=== PATIENT | male | born 1995 | race Caucasian/White ===

== ENCOUNTER 2023-09-29 16:30 | Emergency (ER) | payer BC, SELFPAY ==
[2023-09-29 16:36] VITALS: BP 121/82
[2023-09-29 16:54] LABS: % Basophils 0.3 % (0-2); % Eosinophils 0.2 % (0-6); % Immature Granulocytes 0.3 % (0-0.5); % Lymphocytes 27.4 % (20.5-51.1); % Monocytes 5.4 % (1.7-9.3); % Neutrophils 66.4 % (42.2-75.2); Absolute Lymphocytes 2.9 10^3/uL (1.2-3.4); Absolute Monocytes 0.6 10^3/uL (0.1-0.6); Hematocrit 40.6 % (39.0-52.0); Hemoglobin 14.2 g/dL (13.0-18.0); Mean Corpuscular Hgb 30.7 pg (27.0-31.0); Mean Corpuscular Volume 87.9 fL (80.0-94.0); Mean Platelet Volume 9.4 fL (7.4-10.4); Nucleated Red Blood Cells % 0 % (-); Platelet Count 342 10^3/uL (130-400); Red Blood Cell Count 4.62 10^6/uL (4.70-6.10); White Blood Cell Count 10.6 10^3/uL (4.8-10.8)
[2023-09-29 16:54] LABS: Urine Albumin Trace (Neg - Trace); Urine Bilirubin 1+ (Negative); Urine Character Clear (Clear); Urine Color Yellow; Urine Glucose Negative (Negative); Urine Ketone Negative (Negative); Urine Leukocyte Trace (Negative); Urine Nitrite Negative (Negative); Urine Occult Blood Negative (Negative); Urine Urobilinogen Negative (Neg - 1+)
[2023-09-29 17:07] LABS: Urine Red Blood Cell None Seen /HPF (0-2); Urine Squamous Cell >30 /LPF (Few); Urine White Cell 0-2 /HPF (0-5)
[2023-09-29 17:14] LABS: ALT (SGPT) 18 U/L (0-50); AST (SGOT) 23 U/L (17-59); Albumin 4.6 g/dl (3.5-5.0); Alkaline Phosphatase 68 U/L (38-126); Blood Urea Nitrogen 6 mg/dl (9-20); Calcium 9.5 mg/dl (8.4-10.2); Carbon Dioxide 27 mmol/L (22-30); Chloride 102 mmol/L (98-107); Glucose 99 mg/dl (70-99); Lipase 56 U/L (23-300); Potassium 4.8 mmol/L (3.5-5.1); Sodium 137 mmol/L (135-145); Total Bilirubin 0.7 mg/dl (0.2-1.3); Total Protein 7.6 g/dl (6.3-8.2); eGFR > 60.00
[2023-09-29 18:13] VITALS: BP 121/76
[2023-09-29 18:25] VITALS: BMI 32.6
[2023-09-29 19:00] VITALS: BP 127/75
--- NOTE | 2023-09-29 19:09 | ED.GENMED ---
History of Present Illness
General
Chief Complaint: Abdominal Symptoms
Source: patient
Exam Limitations: none
Time Seen by Provider: 09/29/23 18:18
Nursing documentation reviewed up to this point in time: agreed with
Travel History
Have you had any contact with someone who has COVID-19?: No
Do you have any symptoms of coronavirus? Fever > 100 degrees, chills, cough, shortness of breath, sore throat, loss of taste or smell, muscle aches, or headache?: No
History of Present Illness
History of Present Illness:
28-year-old male presents to the ER for evaluation of right lower quadrant pain he has had since Friday, 5 days ago. Pt has had intermittent n/v/d . Denies any fevers, denies any injuries. PT went to urgent care and was sent to the ED .
Patient does a lot of lifting but denies any actual pain. He does admit to feeling pain in his right lower quadrant right groin. He denies any testicle pain. He denies any urinary frequency urgency or dysuria. He denies any penile discharge. He
is sexually active with his . He denies any back pain.
Review of Systems
Review of Systems
Allergies reviewed?: Yes
All Other Systems: ROS reviewed and negative except as documented in HPI and ROS
Constitutional: Reports no symptoms; Denies fever, fatigue or chills
EENT: Reports no symptoms
Respiratory: Reports no symptoms
Cardiac: Reports no symptoms
ABD/GI: Reports abdominal pain, nausea, vomiting and diarrhea
: Reports no symptoms
Musculoskeletal: Reports no symptoms
Skin: Reports no symptoms
Neurological: Reports no symptoms
Psychiatric: Reports no symptoms
Phy Exam
General Physical Exam
General Presentation: no apparent distress
General age: appears stated age
General Skin: warm and dry
General Habitus: normal
General Mental: alert
General Hydration: appears well hydrated
Gastrointestinal Exam
Gastrointestinal Exam: soft and other (tender rlq )
Neurological Exam
Neurological Exam: alert and oriented x3
Musculoskeletal Exam
Musculoskeletal Exam: full ROM
Skin Exam
Skin Exam: normal color and warm/dry
Psychiatric Exam
Psychiatric Exam: normal mood/affect
Course
Orders/Labs/Results
Orders:
Orders
09/29/23 16:44
Urinalysis Reflex To Culture Urgent
Date Specimen was Collected: 09/29/23
Time Specimen was Collected: 16:41
Urine Microscopic Reflex Cult Urgent
09/29/23 16:47
Complete Blood Count/With Diff Urgent
Comprehensive Metabolic Panel Urgent
Lipase Urgent
Urine Culture Urgent
KY[facility]ER Source: U
Specimen Description:
Date Specimen was Collected: 09/29/23
Time Specimen was Collected: 16:41
Comment: Add on per Mirna Carrera
09/29/23 19:07
0.9% Sodium Chloride 1000 ml [Nss] 1,000 ml IV BOLUS
09/29/23 19:09
CT Abd/Pel (IV only)-DH only Urgent
Comment:
Reason For Exam: rlq pain
09/29/23 22:20
Add On - Microbiology Urgent
Tests Added?: urine culture
Abnormal Lab Results
09/29/23 09/29/23
16:44 16:47
RBC 4.62 L 10^6/uL
(4.70-6.10)
Absolute Neuts (auto) 7.0 H 10^3/uL
(1.4-6.5)
BUN 6 L mg/dl
(9-20)
Creatinine 0.6 L mg/dL
(0.7-1.3)
Urine Bilirubin 1+ A
(Negative)
Leukocyte Esterase Rfl Trace A
(Negative)
09/29/23 16:47
09/29/23 16:47
Vital Signs
Initial and Last Documented VS:
Initial Vital Signs
Temp Pulse Resp BP Pulse Ox
98.1 F 92 18 121/82 99
09/29/23 16:36 09/29/23 16:36 09/29/23 16:36 09/29/23 16:36 09/29/23 16:36
Last Documented Vital Signs
Temp Pulse Resp BP Pulse Ox
98.1 F 92 18 109/68 100
09/29/23 16:36 09/29/23 16:36 09/29/23 16:36 09/29/23 21:08 09/29/23 21:15
MDM/Problems Addressed
Differential Diagnosis Includes:
Not limited to muscle pain, viral syndrome, appendicitis
MDM/Problems Addressed:
Patient is a 28-year-old male who presents to the ER with right lower quadrant pain for the past several days. He is nauseous with this. He does mention that he had some diarrhea with this. He denies any injury but does a lot of lifting. Patient
presents awake alert no acute distress mild right lower quadrant tenderness. Patient denies any fevers and is afebrile here with a normal white count labs unremarkable. Urine unremarkable. Patient denies any back pain. CAT scan reviewed shows
diffuse thickening of the urinary bladder wall possible acute cystitis however patient clinical without any symptoms and urinalysis negative. CAT scan also shows asymmetric dilatation of the right intrarenal collecting system and right ureter
diagnostic possibilities are listed including right UP junction obstruction possibly congenital or a sending right UTI/acute right pyelonephritis. Patient with no evidence of UTI. He has no concern for STD and sexually active no penile discharge.
Patient is well-appearing in no acute distress Case reviewed with ED physician will have patient follow-up with urology for findings on CAT scan as well as his family doctor. He is going to be seeing Karla Lay family doctor.
*Radiology
Radiology exam reviewed: radiology read reviewed
*Pulse Oximetry
Patient hypoxic: no
*Critical Care Note
Total Time (30-74mins, 75-104mins- exclusive of procedures): Not Applicable
ED Attending Note
-
Portions of this chart may have been created with voice recognition software.� Occasional wrong word or��sound alike� substitutions may have occurred due to the inherent limitations of voice recognition software.
Discharge Plan
Departure
Patient Disposition: Home (Routine Discharge)
Date of Disposition: 09/29/23
Time of Disposition: 22:27
Patient with high blood pressure during this ER visit?: No
Condition: Fair
Covid-19: Not Applicable
Discharge Problem:
Abdominal pain
Instructions: Abdominal Pain
Referrals:
NONE,* [Family Provider] -
Robin Bartlett MD [Active] -
Activity Restrictions/Additional Instructions:
As discussed follow-up with urology for further evaluation of CAT scan findings. In addition please follow-up with family doctor. Return if any worsening of symptoms of worsening pain nausea vomiting fever chills or any further concerns.
Interventions
Interventions:
*Risk Screen - Suicide Last Done: 09/29/23 16:40
*General Assessment Last Done: 09/29/23 16:40
*Neglect/Abuse Screening Last Done: 09/29/23 16:40
ED- Fall Risk Assessment Last Done: 09/29/23 18:27
*ED COVID-19 Vaccine History Last Done: 09/29/23 18:26
QM-Mvsabd-Ukzmwhawqh Assessment Last Done: 09/29/23 18:27
[2023-09-29] MEDS: NSS 1000 IV (19:32)
[2023-09-29 20:00] VITALS: BP 138/83
[2023-09-29 21:08] VITALS: BP 109/68
== END 2023-09-29 23:00 | disposition home or self-care (01) ==
LOC: EMR 16:30
PROVIDERS: Emergency Medicine; EMERGENCY PHYSICIAN Student in an Organized Health Care Education/Training Program
DX: R10.31 Right lower quadrant pain (principal)
CPT/HCPCS: 99285; 96360; 74177; 80053; 81003; 81015; 83690; 85025; 87086; Q9967